=== PATIENT | male | born 1990 | race Two or more races ===

== ENCOUNTER 2025-06-02 13:35 | Inpatient (IN) | payer MEDICAID, OTHER ==
[~2025-06-02] VITALS: Ht 167.6 cm; Wt 92.4 kg
--- NOTE | 2025-06-02 14:16 | ED.PDOC ---
History of Present Illness HPI Comments 35y M who presents to the ED for chief complaint of multiple complaints. Pt states he started to have L arm tingling and pain starting 3x days prior. Pt states it went away but while at grocery store this AM, he started to have chest pain, shortness of breath, with associated L leg pain and tingling and came to the ED for further evaluation. Pt in the ED, is alert and oriented x 4 and no noted changes in vision, gait or speech are noted. Pt has noted history of HTN and states has been taking his medications. Pt denies any other symptoms at this time. Pt has noted BP of 180/115 and heart rate 106 in the ED with otherwise stable vitals. Chief Complaint: Upper Extremity Time Seen by MD: 14:08 Reviewed Notes: Medications, Allergies Allergies: Coded Allergies: NO KNOWN ALLERGIES (Unverified , 06/02/25) Information Source: Patient, Spouse Mode of Arrival: Ambulatory Severity: Moderate Timing: Days Duration: Since onset Prehospital treatment: None Past Medical History PAST MEDICAL HISTORY: HTN Surgical History: Denies all surgeries Family History Family History: Family hx of DM Social History Smoker: Non-Smoker Alcohol: Occasionally Drugs: Denies Drug Use Lives In: Home Constitutional: denies: chills, diaphoresis, fatigue, fever, malaise, sweats, weakness, others EENTM: denies: blurred vision, double vision, ear bleeding, ear discharge, ear drainage, ear pain, ear ringing, eye pain, eye redness, hearing loss, mouth pain, mouth swelling, nasal discharge, nose bleeding, nose congestion, nose pain, photophobia, tearing, throat pain, throat swelling, voice changes, others Respiratory: reports: shortness of breath; denies: cough, hemoptysis, orthopnea, SOB at rest, SOB with excertion, stridor, wheezing, others Cardiovascular: reports: chest pain; denies: dizzy spells, diaphoresis, Dyspnea on exertion, edema, irregular heart beat, left arm pain, lightheadedness, palpitations, PND, syncope, others Gastrointestinal: denies: abdomen distended, abdominal pain, blood streaked bowels, constipated, diarrhea, dysphagia, difficulty swallowing, hematemesis, melena, nausea, poor appetite, poor fluid intake, rectal bleeding, rectal pain, vomiting, others Genitourinary: denies: burning, dysuria, flank pain, frequency, hematuria, incontinence, penile discharge, penile sore, pain, testicle pain, testicle swelling, urgency, others Neurological: reports: tingling (L upper and lower extremity); denies: dizziness, fainting, headache, left sided numbness, left sided weakness, numbness, paresthesia, pre-existing deficit, right sided numbness, right sided weakness, seizure, speech problems, tremors, weakness, others Musculoskeletal: denies: back pain, gout, joint pain, joint swelling, muscle pain, muscle stiffness, neck pain, others Integumetry: denies: bruises, change in color, change in hair/nails, dryness, l aceration, lesions, lumps, rash, wounds, others Allergic/Immunocompromised: denies: Difficulty Healing, Frequent Infections, Hives, Itching, others Hematologic/Lymphatic: denies: anemia, blood clots, easy bleeding, easy bruising, swollen glands, others Endocrine: denies: excessive hunger, excessive sweating, excessive thirst, excessive urination, flushing, intolerance to cold, intolerance to heat, unexplained weight gain, unexplained weight loss, others Psychiatric: denies: anxiety, bipolar disorder, depression, hopeless, panic disorder, schizophrenia, sleepless, suicidal, others All Other Systems: Reviewed and Negative Physical Exam General Appearance: Moderate Distress HEENT: Normal ENT Inspection, Pharynx Normal, TMs Normal Neck: Full Range of Motion, Non-Tender, Normal, Normal Inspection Respiratory: Chest Non-Tender, Lungs Clear, No Accessory Muscle Use, No Respiratory Distress, Normal Breath Sounds Cardiovascular: No Edema, No JVD, No Murmur, No Gallop, Normal Peripheral Pulses, Regular Rate/Rhythm Breast Exam: Deferred Gastrointestinal: No Organomegaly, Non Tender, No Pulsatile Mass, Normal Bowel Sounds, Soft Genitalia: Deferred Pelvic: Deferred Rectal: Deferred Extremities: No calf tenderness, Normal capillary refill, No pedal edema Musculoskeletal : Apperance: Normal Neurologic: Alert, gun stocker II-XII nml as Tested, Motor Weakness, Normal Affect, Normal Mood, No Sensory Deficits Cerebellar Function: Normal Reflexes: Normal Skin: Dry, Pallor, Warm Lymphatic: No Adenopathy Was a procedure done? Was a procedure done?: No Differential Dx Considerations may include: HTN urgency, med noncompliance, cervical radiculopathy, muscle spasm X-Ray, Labs, Meds, VS Vital Signs Date Time Temp Pulse Resp B/P (MAP) Pulse Ox O2 Delivery O2 Flow Rate FiO2 06/02/25 16:57 86 16 97 Room Air 06/02/25 16:57 97.8 86 0 167/108 (127) 86 97.8 06/02/25 16:32 167/108 06/02/25 14:26 75 06/02/25 13:37 98.0 106 16 180/115 99 98.0 Lab Test 06/02/25 14:54 06/02/25 14:12 Range/Units Troponin I High Sensitivity 3 L < 3 L </=54 ng/L White Blood Count 7.4 4.4-10.8 10^3/uL Red Blood Count 5.10 4.5-5.90 10^6/uL Hemoglobin 15.2 13.5-17.5 g/dL Hematocrit 43.8 41.0-53.0 % Mean Corpuscular Volume 86.0 80.0-100.0 fL Mean Corpuscular Hemoglobin 29.8 28.0-32.0 pg Mean Corpuscular Hemoglobin Concent 34.7 32.0-36.0 g/dL Red Cell Distribution Width 14.0 11.8-14.3 % Platelet Count 270 140-450 10^3/uL Mean Platelet Volume 7.2 6.9-10.8 fL Neutrophils (%) (Auto) 48.4 37.0-80.0 % Lymphocytes (%) (Auto) 38.7 10.0-50.0 % Monocytes (%) (Auto) 5.9 0.0-12.0 % Eosinophils (%) (Auto) 6.2 0.0-7.0 % Basophils (%) (Auto) 0.8 0.0-2.0 % Neutrophils # (Auto) 3.6 1.6-8.6 10 ^3/uL Lymphocytes # (Auto) 2.9 0.4-5.4 10 ^3/uL Monocytes # (Auto) 0.4 0-1.3 10 ^3/uL Eosinophils # (Auto) 0.5 0-0.8 10 ^3/uL Basophils # (Auto) 0.1 0-0.2 10 ^3/uL Nucleated Red Blood Cells 0.0 % Sodium Level 139 136-145 mmol/L Potassium Level 3.3 L 3.5-5.1 mmol/L Chloride Level 104 98-107 mmol/L Carbon Dioxide Level 24 20-31 mmol/L Anion Gap 11 5-15 Blood Urea Nitrogen 32 H 9-23 mg/dL Creatinine 2.49 H 0.700-1.30 mg/dL Glomerular Filtration Rate Calc 34 >90 mL/min BUN/Creatinine Ratio 12.9 10.0-20.0 Serum Glucose 187 H 74-106 mg/dL Calcium Level 9.1 8.7-10.4 mg/dL Current Medications Medications (Trade) Dose Ordered Sig/Vale Route Start Time Stop Time Status Last Admin Clonidine HCl (Catapres Tablet) 0.2 mg ONCE ONCE PO 06/02/25 14:30 06/02/25 14:31 DC 06/02/25 16:32 PROCEDURE(s): HWOCT - HEAD WITHOUT CONTRAST IMPRESSION: 1. No acute intracranial process. 2. Mild left maxillary sinus disease. The patient's CBC is within normal limits The chemistry panel shows a BUN of 32 and a creatinine of 2.49 The glucose is 187 The patient was given clonidine 0.2 mg by mouth The troponin level x2 is negative Images Reviewed?: Images reviewed and evaluated by me Time of 1ST Reevaluation: 14:40 Reevaluation 1ST: Unchanged Patient Education/Counseling: Diagnosis, Treatment, Prognosis Family Education/Counseling: Diagnosis, Treatment, Prognosis SEPSIS Sepsis Screen Date sepsis recognized/suspect: Jun 02, 2025 Time Sepsis recognized/suspect: 1337 Recent Procedure: No On Antibiotic Therapy: No Respiratory Rate >20: No Heart Rate >90: Yes Temp<36 C (96.8 F) or >38.3 C: No SBP <90 or MAP <65 mmHG: No New Acute Mental Status Change: No Is the patient on CPAP, BIPAP,: No Physician Orders Urinalysis (06/02/25 14:05) Electrocardigram (06/02/25 14:05) Drug Screen (06/02/25 14:05) Head Without Contrast (06/02/25 14:05) Electrocardigram (06/02/25 15:05) Electrocardigram (06/02/25 17:05) Vital Signs Date Time Temp Pulse Resp B/P (MAP) Pulse Ox O2 Delivery O2 Flow Rate FiO2 06/02/25 16:57 86 16 97 Room Air 06/02/25 16:57 97.8 86 0 167/108 (127) 86 97.8 06/02/25 16:32 167/108 06/02/25 14:26 75 06/02/25 13:37 98.0 106 16 180/115 99 98.0 Laboratory Tests Test 06/02/25 14:12 White Blood Count 7.4 10^3/uL (4.4-10.8) Medications Medications Dose Ordered Sig/Vale Route Start Time Stop Time Status Last Admin Dose Admin Clonidine HCl 0.2 mg ONCE ONCE PO 06/02/25 14:30 06/02/25 14:31 DC 06/02/25 16:32 Departure 1 Departure Time of Disposition: 17:09 Impression: Primary Impression: Acute myocardial ischemia Disposition: ADMITTED INPATIENT Admit to: Tele Condition: Fair Critical Care Note Critical Care Time?: No Stability Stability form required: Yes Unstable for transfer: Telemetry monitoring (Telemetry monitoring required), ED Physician Assesment (Clinical assesment) Heart Score Heart Score: Heart Score Response (Comments) Value History Moderate Suspicious 1 EKG Repolarization Disturb 1 Age <45 0 Risk Factors 1 or 2 risk factors 1 Troponin Normal limit 0 Total 3 I personally scribed for ZAIN VALLADARES MD (NONISJOSÉ MIGUEL) on 06/02/25 at 14:16. El ectronically submitted by Sondra Patterson ([facility] [place]). I personally scribed for ZAIN VALLADARES MD (FELIBERTOPASJOSÉ MIGUEL) on 06/02/25 at 15:03. Electronically submitted by Sondra Patterson ([facility] [place]). ZAIN VALLADARES MD Jun 02, 2025 14:16
[2025-06-02 14:24] LABS: Hematocrit 43.8 % (41.0-53.0); Hemoglobin 15.2 g/dL (13.5-17.5); Mean Corpuscular Hemoglobin 29.8 pg (28.0-32.0); Mean Corpuscular Volume 86.0 fL (80.0-100.0); Nucleated Red Blood Cells % 0.0 %
[2025-06-02 14:26] LABS: Chloride 104 mmol/L (98-107); Sodium 139 mmol/L (136-145)
[2025-06-02 14:27] LABS: Anion Gap 11 (5-15); Carbon Dioxide 24 mmol/L (20-31)
[2025-06-02 14:28] LABS: Calcium 9.1 mg/dL (8.7-10.4); Potassium 3.3 mmol/L (3.5-5.1)
[2025-06-02 14:32] LABS: BUN/Creatinine Ratio 12.9 (10.0-20.0)
[2025-06-02 14:33] LABS: Blood Urea Nitrogen 32 mg/dL (9-23); Glucose 187 mg/dL (74-106)
--- NOTE | 2025-06-02 14:56 | DVH ---
EXAM: CT HEAD WITHOUT CONTRAST HISTORY: GENERALIZED NUMBNESS AND WEAKNESS TO THE LEFT EXTREMITIES COMPARISON: None TECHNIQUE: Noncontrast axial CT images of the head were performed. Sagittal and coronal reformatted i mages were obtained. This CT exam was performed using 1 or more of the following dose reduction techn iques: Automated exposure control, adjustment of the mA and/or kv according to patient size, or the u se of iterative reconstruction techniques. Radiation Dose: CTDI volume is 58.74 mGy. Dose-length product is 1273.2 mGy*cm FINDINGS: No intracranial hemorrhage, mass, midline shift, hydrocephalus, or evidence of acute large vessel inf arct. There is a mucous retention cyst in the left maxillary sinus. The bilateral mastoid air cells a nd middle ear spaces are clear. No cranial fracture or scalp edema. IMPRESSION: 1. No acute intracranial process. 2. Mild left maxillary sinus disease.
[2025-06-02] MEDS ORDERED: ACETAMINOPHEN 325 MG TAB PO PRN (21:30)
--- NOTE | 2025-06-02 21:32 | DVHHPRES ---
History of Present Illness Resident Creating Document: NATHAN BAUER History of Present Illness Mr. Davis is a 35 year old male with prior medical history of hypertension, hyperlipidemia, and CKD, who presents today with chief complaint of multiple complaints. The patient states he was at the grocery store today when he had onset generalized tingling, blurry vision, nausea, palpitations, and tinnitus. He denies vomiting, chest pain, headaches, loss of consciousness, and other symptoms. The patient states he is noncompliant with his blood pressure medications. Due to persistent symptoms, he sought medical care at the emergency department. On evaluation in the ED, blood pressure was 180/115 mmHg. 12 lead EKG shows sinus rhythm. Initial labs show CBC within normal range, hypokalemia, creatinine 2.49, BUN 32, and Troponins were negative. head CT shows no acute intracranial process. Chest x-ray shows no acute cardiopulmonary disease. The patient was given 1 dose of oral clonidine. who was admitted for further workup and monitoring. Personal history: Hypertension, hyperlipidemia, CKD Surgical history: Jaw surgery, ganglion cyst removal Allergies: Denies Social history: refers daily marijuana use for the last month with habitual use before, denies alcohol and tobacco use. He lives with his and children and states he feels safe. Review of Systems Review of Systems Constitutional: Denies weight loss, fever and chills. HEENT: Refers blurry vision, Denies changes in hearing. Respiratory: Denies shortness of breath and cough Cardiovascular: Denies chest discomfort or palpitations GI: Denies abdominal distention, abdominal pain, diarrhea : Denies dysuria and urinary frequency. Musculoskeletal: Denies symptoms Skin: Denies rash and pruritus. Neurological: Refers minor headache denies dizziness vision or hearing problems Allergies: Coded Allergies: NO KNOWN ALLERGIES (Unverified , 06/02/25) Medications Current Medications Medications Dose Ordered Sig/Vale Route Start Time Stop Time Status Last Admin Dose Admin Enoxaparin Sodium 40 mg DAILY SC 06/03/25 10:00 UNV Acetaminophen 325 mg Q4HP PRN PO 06/02/25 21:30 UNV Carvedilol 12.5 mg Q12HR PO 06/02/25 22:00 UNV Losartan Potassium 100 mg DAILY PO 06/03/25 10:00 UNV Hydrochlorothiazide 25 mg DAILY PO 06/03/25 10:00 UNV Exam Vital Signs Vital Signs Date Time Temp Pulse Resp B/P (MAP) Pulse Ox O2 Delivery O2 Flow Rate FiO2 06/02/25 16:57 86 16 97 Room Air 06/02/25 16:57 97.8 167/108 (127) 97.8 Exam General: The patient alert and oriented in person place and time. Patient following commands HEENT: Normocephalic, atraumatic, normal reactive pupils, EOM intact, pink conjunctiva, pink moist mucous membrane Respiratory/pulmonary: Bilateral chest expansion, no pain on palpation of chest wall, clear lungs bilaterally, vesicular murmurs present in almost all lung trujillo, no associated crackles or wheezes. Cardiovascular: Normal RRR, normal S1 and S2, no murmurs Abdomen: Obese, Abdomen nondistended, normal bowel sounds, soft, there is no pain to palpation in any of the abdominal quadrants, no palpable masses. Extremities: No deformities, there is no peripheral edema present at the lower extremities, normal pulses Skin: No rashes or pruritus, there is no sacral edema present at this time. Neurological: Intact cranial nerves with no focal neurologic deficits Labs/Xrays Labs Test 06/02/25 14:54 06/02/25 14:12 Range/Units Troponin I High Sensitivity 3 L </=54 ng/L White Blood Count 7.4 4.4-10.8 10^3/uL Red Blood Count 5.10 4.5-5.90 10^6/uL Hemoglobin 15.2 13.5-17.5 g/dL Hematocrit 43.8 41.0-53.0 % Mean Corpuscular Volume 86.0 80.0-100.0 fL Mean Corpuscular Hemoglobin 29.8 28.0-32.0 pg Mean Corpuscular Hemoglobin Concent 34.7 32.0-36.0 g/dL Red Cell Distribution Width 14.0 11.8-14.3 % Platelet Count 270 140-450 10^3/uL Mean Platelet Volume 7.2 6.9-10.8 fL Neutrophils (%) (Auto) 48.4 37.0-80.0 % Lymphocytes (%) (Auto) 38.7 10.0-50.0 % Monocytes (%) (Auto) 5.9 0.0-12.0 % Eosinophils (%) (Auto) 6.2 0.0-7.0 % Basophils (%) (Auto) 0.8 0.0-2.0 % Neutrophils # (Auto) 3.6 1.6-8.6 10 ^3/uL Lymphocytes # (Auto) 2.9 0.4-5.4 10 ^3/uL Monocytes # (Auto) 0.4 0-1.3 10 ^3/uL Eosinophils # (Auto) 0.5 0-0.8 10 ^3/uL Basophils # (Auto) 0.1 0-0.2 10 ^3/uL Nucleated Red Blood Cells 0.0 % Sodium Level 139 136-145 mmol/L Potassium Level 3.3 L 3.5-5.1 mmol/L Chloride Level 104 98-107 mmol/L Carbon Dioxide Level 24 20-31 mmol/L Anion Gap 11 5-15 Blood Urea Nitrogen 32 H 9-23 mg/dL Creatinine 2.49 H 0.700-1.30 mg/dL Glomerular Filtration Rate Calc 34 >90 mL/min BUN/Creatinine Ratio 12.9 10.0-20.0 Serum Glucose 187 H 74-106 mg/dL Calcium Level 9.1 8.7-10.4 mg/dL SEPSIS Sepsis Screen Date sepsis recognized/suspect: Jun 02, 2025 Time Sepsis recognized/suspect: 1336 Recent Procedure: No On Antibiotic Therapy: No Respiratory Rate >20: No Heart Rate >90: Yes Temp<36 C (96.8 F) or >38.3 C: No SBP <90 or MAP <65 mmHG: No New Acute Mental Status Change: No Is the patient on CPAP, BIPAP,: No Physician Orders Urinalysis (06/02/25 14:05) Electrocardigram (06/02/25 14:05) Drug Screen (06/02/25 14:05) Head Without Contrast (06/02/25 14:05) Electrocardigram (06/02/25 15:05) Electrocardigram (06/02/25 17:05) Magnesium (06/02/25 20:55) Hemoglobin A1c (06/02/25 20:55) B-Type Natriuretic Peptide (06/02/25 20:55) Chest Xray 1 View (06/02/25 20:55) Phosphorus (06/02/25 20:55) Thyroid Stimulating Hormone (06/02/25 20:55) Vitamin D, 25-Hydroxy (06/02/25 20:55) Vitamin B12 (06/02/25 20:55) Complete Blood Count (06/03/25 04:00) Hepatic Panel (06/02/25 20:55) Basic Metabolic Panel (06/03/25 04:00) Admit (06/02/25 21:23) Allergies (06/02/25:23) Code Status (06/02/25:23) Enoxaparin Sodium (Lovenox) (06/03/25 10:00) Cardiac Diet-2gna,Lofat,Lochol (06/03/25 Breakfast) Echo 2d Mode Cardiac Dop (06/02/25 21:23) Condition: Stable (06/02/25:23) Stat Ekg For Chest Pain (06/02/25:) Notify Of Changes From Base (06/02/25 21:23) 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 (06/02/25 21:23) Emergency Dysrhythmia Protocol (06/02/25:23) Rhythm Strips Once Every Shift (06/02/25 21:23) Acetaminophen Tablet (Tylenol Tablet) (06/02/25 21:30) Carvedilol Tablet (Coreg Tablet) (06/02/25 22:00) Losartan Tablet (Cozaar Tablet) (06/03/25 10:00) Losartan Tablet (Cozaar Tablet) (06/02/25 21:30) Hydrochlorothiazide Tablet (Hydrochlorot (06/03/25 10:00) Hydrochlorothiazide Tablet (Hydrochlorot (06/02/25 21:30) Vital Signs Date Time Temp Pulse Resp B/P (MAP) Pulse Ox O2 Delivery O2 Flow Rate FiO2 06/02/25 16:57 86 16 97 Room Air 06/02/25 16:57 97.8 86 0 167/108 (127) 86 97.8 06/02/25 16:32 167/108 06/02/25 14:26 75 06/02/25 13:37 98.0 106 16 180/115 99 98.0 Laboratory Tests Test 06/02/25 14:12 White Blood Count 7.4 10^3/uL (4.4-10.8) Medications Medications Dose Ordered Sig/Vale Route Start Time Stop Time Status Last Admin Dose Admin Clonidine HCl 0.2 mg ONCE ONCE PO 06/02/25 14:30 06/02/25 14:31 DC 06/02/25 16:32 0.2 MG Assessment/Plan Assessment/Plan Assessment and Plan: Hypertensive crisis - Clonidine 0.2 mg p.o. once - Continue losartan 100 mg p.o. daily - Continue hydrochlorothiazide 25 mg p.o. daily - Continue Coreg 12.5 mg p.o. q.12 hours - Monitor BP - Evaluate secondary causes of hypertension in young male (Hyperaldosteronism, hyperthyroidism, etc...) Renal Artery Stenosis ruled out - Renal artery duplex: No findings to suggest renal artery stenosis Possible GEREMIAS on CKD likely due to VMN/hemodynamically mediated - Monitor renal function - Avoid nephrotoxic drugs Hypokalemia, 3.3 - Potassium 20 mEq p.o., once Vitamin D Deficiency - Vitamin-D 56874 units Q 70 p.o. Hyperlipidemia - Pending lipid panel Marijuana use - I have counseled the patient on the importance of complete marijuana cessation for over 15 minutes. Medication noncompliance - I have counseled the patient on the importance of maintaining adherence to his medications Obesity, BMI 32.9 kg/m2 - I have counseled the patient on healthy lifestyle modifications Diet: Cardiac DVT prophylaxis: Enoxaparin 40 mg SC daily GI prophylaxis: Not indicated Case discussed with Dr. Herndon Goals of care discussed with the patient and his for 28 minutes. Full code. Plan discussed with: Patient, Spouse, Other (Nurses) My Orders Orders - NATHAN BAUER RESIDENT Procedure Category Date Status Time Magnesium LAB 06/02/25 In Process 20:55 Hemoglobin A1c LAB 06/02/25 In Process 20:55 B-Type Natriuretic LAB 06/02/25 In Process Peptide 20:55 Chest Xray 1 View XY 06/02/25 Taken 20:55 Phosphorus LAB 06/02/25 In Process 20:55 Thyroid Stimulating LAB 06/02/25 In Process Hormone 20:55 Vitamin D, 25-Hydroxy LAB 06/02/25 In Process 20:55 Vitamin B12 LAB 06/02/25 In Process 20:55 Complete Blood Count LAB 06/03/25 Verified 04:00 Hepatic Panel LAB 06/02/25 In Process 20:55 Basic Metabolic Panel LAB 06/03/25 Verified 04:00 Admit ADMIT 06/02/25 Transmitted 21:23 Allergies TYE 06/02/25 In Process 21:23 Code Status CODE 06/02/25 Transmitted 21:23 Enoxaparin Sodium PHA 06/03/25 Logged (Lovenox) 10:00 Cardiac DIET 06/03/25 Transmitted Diet-2gna,Lofat,Lochol Breakfast Echo 2d Mode Cardiac US 06/02/25 Logged DOP 21:23 Condition: Stable [facility] 06/02/25 In Process 21:23 Stat Ekg For Chest [facility] 06/02/25 In Process Pain 21:23 Notify Md Of Changes [facility] 06/02/25 In Process From Base 21:23 Sewing 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 Paper 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 For [facility] 06/02/25 In Process 24 Hours 21:23 Emergency Dysrhythmia [facility] 06/02/25 In Process Protocol 21:23 Rhythm Strips Once [facility] 06/02/25 In Process Every Shift 21:23 Acetaminophen Tablet [facility] 06/02/25 Logged (Tylenol Tablet) 21:30 Carvedilol Tablet [facility] 06/02/25 Logged (Coreg Tablet) 22:00 Losartan Tablet [facility] 06/03/25 Logged (Cozaar Tablet) 10:00 Losartan Tablet [facility] 06/02/25 Logged (Cozaar Tablet) 21:30 Hydrochlorothiazide [facility] 06/03/25 Logged Tablet (Hydrochlorot 10:00 Hydrochlorothiazide PHA 06/02/25 Logged Tablet (Hydrochlorot 21:30 Date of Service: Jun 02, 2025 Billing Provider: ESTRELLA ESPINOZA MD Common Visit Codes: [id number] INP/OBS CARE (HIGH) Secondary Visit Codes: [id number] CARE PLAN 30 MINUTES NATHAN BAUER RESIDENT Jun 02, 2025 21:32 ALPESH BUITRAGO RESIDENT Jun 03, 2025 02:38
--- NOTE | 2025-06-02 21:38 | DVH ---
CHEST RADIOGRAPH Indication: Chest pain Technique: Single frontal view of the chest was obtained Comparison: None FINDINGS: Lines and Tubes: None Lungs: No focal consolidation. Pleura: No effusion. No pneumothorax. Cardiomediastinal contours: Unremarkable Bones: No acute osseous abnormality. IMPRESSION: 1. No acute cardiopulmonary disease.
[2025-06-02 21:42] LABS: Alanine Aminotransferase 22.0 U/L (7-40); Albumin 4.5 g/dL (3.2-4.8); Alkaline Phosphatase 80.0 U/L (46-116); Bilirubin, Direct 0.2 mg/dL (<0.3); Magnesium 2.0 mg/dL (1.6-2.6); Total Protein 8.1 g/dL (5.7-8.2)
[2025-06-02 21:43] LABS: Bilirubin, Total 0.8 mg/dL (0.2-1.0)
--- NOTE | 2025-06-02 23:32 | DVH ---
INDICATION: Hypotension TECHNIQUE: Multiple real-time sonographic images of the kidneys and bladder were obtained. Duplex Doppler evaluation including color Doppler and spectral/pulsed waveform analysis of the bilate ral renal arteries was performed. COMPARISON: None FINDINGS: The right kidney measures 12.0 cm in length. The right renal echogenicity, contour and cortical thick ness are within normal limits. No hydronephrosis or large masses/calculi are seen. Polycystic in appe arance. The left kidney measures 12.0 cm in length. The left renal echogenicity, contour, and cortical thickn ess are within normal limits. No hydronephrosis or large masses/calculi are seen. Polycystic in appea mario. Aorta peak systolic velocity, 122 cm/s Right renal artery peak systolic velocity, 64 cm/s (< 180 cm/s = normal). Left renal artery peak systolic velocity 121 cm/s (< 180 cm/s = normal). Right RAR : 0.8 (< 3.5, normal) Left RAR 1.0 (< 3.5, normal) Right RI: 0.72 (< 0.75, normal) Left RI: 0.64 (< 0.75, normal) IMPRESSION: No findings to suggest renal artery stenosis. *[employer] Techniques in Noninvasive Vascular Diagnosis 2001
[2025-06-03 01:00] VITALS: BP 155/85; PULSE 67; RESP 20; TEMP 97.9; O2SAT 99
[2025-06-03] MEDS: CARVEDILOL 12.5 MG TAB PO SCH (01:02)
[2025-06-03 01:07] VITALS: BP 155/85; PULSE 67; RESP 20; TEMP 97.9; O2SAT 99
[2025-06-03 04:39] LABS: Hematocrit 40.1 % (41.0-53.0); Hemoglobin 14.0 g/dL (13.5-17.5); Mean Corpuscular Hemoglobin 29.8 pg (28.0-32.0); Mean Corpuscular Volume 85.6 fL (80.0-100.0); Nucleated Red Blood Cells % 0.1 %
[2025-06-03 04:46] LABS: Anion Gap 13 (5-15); Carbon Dioxide 23 mmol/L (20-31); Chloride 103 mmol/L (98-107); Potassium 3.1 mmol/L (3.5-5.1); Sodium 139 mmol/L (136-145)
[2025-06-03 04:47] LABS: Calcium 9.0 mg/dL (8.7-10.4)
[2025-06-03 04:52] LABS: BUN/Creatinine Ratio 10.3 (10.0-20.0); Glucose 92 mg/dL (74-106)
[2025-06-03 04:53] LABS: Blood Urea Nitrogen 24 mg/dL (9-23); Triglycerides 194 mg/dL (< 150)
[2025-06-03 04:54] LABS: Cholesterol 219 mg/dL (< 200); HDL Cholesterol 32 mg/dL (40-59)
[2025-06-03 05:00] VITALS: BP 126/72; PULSE 56; RESP 18; TEMP 98.1; O2SAT 98
[2025-06-03] MEDS: POTASSIUM CHL 20 Meq TABLET PO ONE (05:42)
[2025-06-03] MEDS: SODIUM CHLORIDE 0.9% 500 ML IV ONE (06:15)
[2025-06-03] MEDS ORDERED: POTASSIUM EFFERVESENT TAB 25 MEQ PO ONE (06:30)
[2025-06-03] MEDS: LOSARTAN POTASSIUM 50 MG TAB PO ONE (07:57)
[2025-06-03] MEDS: hydroCHLOROthiazide 25 MG TAB PO ONE (07:57)
[2025-06-03] MEDS: ERGOCALCIFEROL 50,000 UNIT(1.25MG) CAP PO SCH (08:20)
[2025-06-03] MEDS: hydroCHLOROthiazide 25 MG TAB PO SCH (08:21)
[2025-06-03] MEDS: LOSARTAN POTASSIUM 50 MG TAB PO SCH (08:26)
[2025-06-03] MEDS: ENOXAPARIN SOD 40 MG/0.4 ML SYRINGE SC SCH (08:27)
[2025-06-03] MEDS ORDERED: CARV12.544 PO (08:35)
[2025-06-03] MEDS ORDERED: LOSA100T25 PO (08:35)
--- NOTE | 2025-06-03 08:38 | DVH ---
CLINICAL HISTORY: Rule out carotid stenosis. TECHNIQUE: Duplex carotid Doppler ultrasound was performed. Grayscale, color-flow, and spectral wavef orm analysis was performed. COMPARISON: None FINDINGS: There is no significant plaque seen on zhao scale imaging in the carotid bifurcations and proximal IC As bilaterally. There is no significant elevation of the peak systolic velocity. There is no signi ficant spectral broadening. Color doppler examination demonstrates no evidence for significant turbu lent flow. Findings correspond to the less than 50% stenosis category. Antegrade flow is noted in b oth vertebral arteries. EXAMINATION DATA: RIGHT PSV (cm/s) EDV (cm/s) ICA 85 32 CCA 95 ECA 84 ICA/CCA Ratio: 0.9 Vertebral Flow: antegrade LEFT PSV (cm/s) EDV (cm/s) ICA 69 29 CCA 64 ECA 93 ICA/CCA Ratio: 1.1 Vertebral Flow: antegrade IMPRESSION: Normal examination. No evidence of significant carotid stenosis.
[2025-06-03 09:06] VITALS: BP 140/90; PULSE 71; RESP 16; TEMP 97.6; O2SAT 98
[2025-06-03] MEDS ORDERED: POTASSIUM CHL 20 Meq TABLET PO SCH (10:00)
[2025-06-03 10:33] LABS: Urine Protein, UAD Negative (Negative)
[2025-06-03 10:52] LABS: Amphetamine Screen, Urine Neg (NEGATIVE); Barbiturate Scree,Urine Neg (NEGATIVE); Benzodiazephine Screen, Urine Neg (NEGATIVE); Cannabinoid Screen, Urine Pos (NEGATIVE); Cocaine Screen, Urine Neg (NEGATIVE); Opiate Scree,Urine Neg (NEGATIVE); Phencyclidine Screen, Urine Neg (NEGATIVE)
--- NOTE | 2025-06-03 12:52 | DVH ---
Exam: CT CT AB PEL WO CON-NO ORAL OR IV History: Abdominal pain, r/o adrenal mass. Comparison Study: Renal artery ultrasound performed on 06/02/2025. Technique: Multidetector spiral CT of the abdomen and pelvis was performed from lung bases to pubic s ymphysis. Imaging was performed without intravenous contrast. Coronal and sagittal multiplanar reform ats were obtained from the axial data set by the technologist. Radiation Dose : 1. Abdomen/Pelvis: CTDIvol 17.65 mGy, DLP 1186.2 mGy*cm. Findings: Evaluation of vasculature and solid organs is limited due to lack of intravenous contrast use. Lung Bases: Lung bases are clear. Visualized portions of the heart and pericardium are unremarkable. Liver: The liver is normal in size. No focal lesions. Gallbladder and Biliary Tree: The gallbladder is unremarkable. No intrahepatic or extrahepatic biliar y ductal dilatation. Spleen: Unremarkable Pancreas: The pancreas is grossly unremarkable. Adrenal Glands: Unremarkable Kidneys: There are innumerable bilateral cysts replacing the bilateral renal parenchyma. No hydroneph rosis. No renal calculi. GI tract: The stomach is grossly normal in appearance. No evidence of small bowel wall thickening or abnormal dilatation to suggest bowel obstruction. The colon is unremarkable. The appendix is visualiz ed and is normal. Peritoneum/mesentery/retroperitoneum. No evidence of free intraperitoneal air. No ascites. No evidenc e of suspicious lymphadenopathy. Abdominal Wall: Unremarkable. Vasculature: The visualized abdominal aorta is normal in size and caliber. Evaluation of abdominal a nd pelvic vessels is limited due to lack of intravenous contrast. Urinary Bladder: Grossly unremarkable for degree of distention. Pelvic Organs: Unremarkable Musculoskeletal: No aggressive focal bony lesions, acute fractures or dislocation. Soft tissues: Fat containing umbilical hernia. Subcutaneous emphysema in the left ventral abdominal w all to be correlated with injection history. IMPRESSION: 1. No acute abdominopelvic abnormalities. No adrenal mass. 2. Polycystic kidney disease.
[2025-06-03 13:00] VITALS: BP 137/80; PULSE 60; RESP 18; TEMP 98; O2SAT 99
--- NOTE | 2025-06-03 13:39 | DVHPNRES ---
Progress Note Date Seen: Jun 03, 2025 Resident Creating Document: LEXY TIM Medical Necessity Reason Pt with a Central, PICC or Fol: No Subjective Review of Systems Patient is a 35-year-old male with past medical history of hypertension, hyperlipidemia, and CKD, presented to [facility] ED with complaint of shortness of breaths, palpitation. The patient reports that yesterday around 1 PM, while at the grocery store, he experienced blurry vision, nausea, palpitations, and dizziness. He denies vomiting, chest pain, headache, loss of consciousness, or other associated symptoms. He recently lost approximately 60 pounds over the past year, going from 270 to 210 pounds, which he attributes to healthy lifestyle changes. The patient admits to being noncompliant with his blood pressure medications and reports not taking them for the past 3 days. On evaluation in the ED, blood pressure was 180/115 mmHg. 12 lead EKG shows sinus rhythm. Initial labs show CBC within normal range, hypokalemia, creatinine 2.49, BUN 32, and Troponins were negative. Head CT shows no acute intracranial process. Chest x-ray shows no acute cardiopulmonary disease. Carotid Doppler Study shows no evidence of significant carotid stenosis. Head CT shows no acute intracranial process. Past medical history: Hypertension, hyperlipidemia, CKD Past surgical history: Jaw surgery, ganglion cyst removal Social & Personal history: refers daily marijuana use for the last month with habitual use before for 2-3 years, denies alcohol and tobacco use. He lives with his and children and states he feels safe. Allergies: Denies Patient seen and examined at bedside. Patient is alert and oriented to time, place person and responding to all questions. Eyes: No Pain, Vision change, No Conjunctivae inflammation, No Eyelid inflammation, No Other, No Redness ENT: No Ear pain, No Ear discharge, No Nose pain, No Nose discharge, No Nose congestion, No Mouth pain, No Mouth swelling, No Throat pain, No Throat swelling, No Other Cardiovascular: No Chest Pain, Palpitations, No Orthopnea, No Paroxysmal No Dyspnea, No Edema, No Lt Headedness, No Other Respiratory: No Cough, No Dry, Shortness of breath, No SOB with exertion, No Wheezing, No Hemoptysis, No Pleuritic Pain, No Sputum, No Other Gastrointestinal: Nausea, No Vomiting, No Abdominal Pain, No Diarrhea, No Constipation, No Melena, No Hematochezia, No Other Genitourinary: No Dysuria, No Frequency, No Incontinence, No Hematuria, No Retention, No Other Musculoskeletal: No other, No neck pain, No shoulder pain, No arm pain, No back pain, No hand pain, No leg pain, No foot pain Skin: No Rash, No Lesions, No Jaundice, No Bruising, No Other Objective vital signs Vital Sign Date Time Temp Pulse Resp B/P (MAP) Pulse Ox O2 Delivery O2 Flow Rate FiO2 06/03/25 09:06 97.6 71 16 140/90 (107) 98 97.6 06/03/25 01:07 Room Air* 0 21 medications Current Medications Medications Dose Ordered Sig/Vale Route Start Time Stop Time Status Last Admin Dose Admin Enoxaparin Sodium 40 mg DAILY SC 06/03/25 10:00 06/03/25 08:27 40 MG Acetaminophen 325 mg Q4HP PRN PO 06/02/25 21:30 Carvedilol 12.5 mg Q12HR PO 06/02/25 22:00 06/03/25 08:25 12.5 MG Losartan Potassium 100 mg DAILY PO 06/03/25 10:00 06/03/25 08:26 100 MG Hydrochlorothiazide 25 mg DAILY PO 06/03/25 10:00 06/03/25 08:21 25 MG Ergocalciferol 50,000 unit Q7D PO 06/03/25 10:00 06/03/25 08:20 50,000 UNIT Examination General: The patient alert and oriented in person place and time. Patient following commands HEENT: Normocephalic, atraumatic, normal reactive pupils, EOM intact, pink conjunctiva, pink moist mucous membrane Respiratory/pulmonary: Bilateral chest expansion, no pain on palpation of chest wall, clear lungs bilaterally, vesicular murmurs present in almost all lung trujillo, no associated crackles or wheezes. Cardiovascular: Normal RRR, normal S1 and S2, no murmurs Abdomen: Obese, Abdomen nondistended, normal bowel sounds, soft, there is no pain to palpation in any of the abdominal quadrants, no palpable masses. Extremities: No deformities, there is no peripheral edema present at the lower extremities, normal pulses Skin: No rashes or pruritus, there is no sacral edema present at this time. Neurological: Intact cranial nerves with no focal neurologic deficits laboratory and microbiology Laboratory Tests 06/03/25 07:53 06/03/25 03:28 Test 06/03/25 03:28 Range/Units Serum Glucose 92 74-106 mg/dL Labs and/or images reviewed: Labs reviewed by me, Image(s) reviewed by me Problem List/Assessment/Plan Problem List/Assessment/Plan Assessment and Plan: Hypertensive urgency due to medication noncompliance - Carotid Doppler Study: Normal examination. No evidence of significant carotid stenosis. - Head CT: No acute intracranial process. Mild left maxillary sinus disease. - Atenolol 50 mg - Diltiazem 120 mg - Furosemide 40 mg - Monitor BP - Counseled the patient on the importance of maintaining adherence to his medications - Zofran 4 mg - Tylenol 650 mg possible autosomal dominant polycystic kidney disease - Abdomen/Pelvis CT: No acute abdominopelvic abnormalities. No adrenal mass. Polycystic kidney disease. - Kidneys: There are innumerable bilateral cysts replacing the bilateral renal parenchyma. No hydronephrosis. No renal calculi. Acute intractable shortness of breath - Levalbuterol 1.25 mg - Ipratropium 0.5 mg Ruled out Renal Artery Stenosis - Renal artery duplex: No findings to suggest renal artery stenosis GEREMIAS superimposed on CKD likely prerenal, hemodynamically mediated - Monitor renal function - Avoid nephrotoxic drugs - Nephrology consult Hypokalemia, 3.3 - Potassium 20 mEq p.o., once Vitamin D Deficiency - Vitamin-D 13336 units Q 70 p.o. Hyperlipidemia - Lipitor 20 mg - Lipid panel Hyperglycemia - Insulin Human Regular - Lantus 12 units - Jardiance 10 mg Marijuana use - counseled the patient on the importance of complete marijuana cessation for over 15 minutes. Obesity, BMI 32.9 kg/m2 - counseled the patient on healthy lifestyle modifications Diet: Cardiac DVT prophylaxis: Lovenox 60 mg GI prophylaxis: Not indicated Goals of care: Full code, discussed for >26 minutes on 06/03/25 Plan discussed with patient Plan discussed with Dr. Cantu Plan discussed with: Patient, Other (RN) My Orders My Orders Orders - LEXY TIM Procedure Category Date Status Time Complete Blood Count LAB 06/04/25 Verified 04:00 Comprehensive LAB 06/04/25 Verified Metabolic Panel 04:00 Date of Service: Jun 03, 2025 Billing Provider: KRISTIN CANTU MD Common Visit Codes: [id number] INP/OBS CARE(HIGH) LEXY TIM RESIDENT Jun 03, 2025 13:39 KRISTIN CANTU MD Jun 04, 2025 06:40
[2025-06-03] MEDS: SODIUM CHLORIDE 0.9% 1,000 ML IV SCH (16:48)
[2025-06-03 16:51] LABS: Potassium 3.4 mmol/L (3.5-5.1)
[2025-06-03 16:57] LABS: Magnesium 1.9 mg/dL (1.6-2.6)
[2025-06-03 17:10] VITALS: BP 137/89; PULSE 60; RESP 18; TEMP 98.6; O2SAT 99
--- NOTE | 2025-06-03 18:35 | DVHCONRES ---
Date Seen: Jun 03, 2025 Resident Creating Document: JAMIA STANLEY RESIDENT Referring Physician resident PATRICIA Reason for Consultation Polycystic kidney disease History of Present Illness Patient is a 35-year-old male with past medical history of hypertension, hyperli pidemia, and CKD, presented to [facility] ED with complaint of shortness of breaths, palpitation. The patient reports that yesterday around 1 PM, while at the grocery store, he experienced blurry vision, nausea, palpitations, and dizziness. He denies vomiting, chest pain, headache, loss of consciousness, or other associated symptoms. On evaluation in the ED, blood pressure was 180/115 mmHg. 12 lead EKG shows sinus rhythm. Initial labs show CBC within normal range, hypokalemia, creatinine 2.49, BUN 32, and Troponins were negative. Head CT shows no acute intracranial process. Chest x-ray shows no acute cardiopulmonary disease. Carotid Doppler Study shows no evidence of significant carotid stenosis. Head CT shows no acute intracranial process. Patient was seen and examined on the bedside. he is alert oriented x3. mentioned feeling better and no active complaint this time. Past Medical History Hypertension, hyperlipidemia, CKD Past Surgical History Jaw surgery, ganglion cyst removal Family History: Hypertension G8 MOTHER G8 FATHER Allergies: Coded Allergies: NO KNOWN ALLERGIES (Unverified , 06/02/25) Home Meds Active Scripts Hydrochlorothiazide (Hydrochlorothiazide) 25 Mg Tab, 25 MG PO DAILY for 30 Days, #30 TAB 0 Refills Prov:SOCO BASHIR RESIDENT 06/04/25 Nifedipine (Nifedipine Er) 60 Mg Tab, 60 MG PO DAILY@DINNER for 30 Days, #30 TAB 0 Refills Prov:SOCO BASHIR RESIDENT 06/04/25 Losartan Potassium (Losartan Potassium) 100 Mg Tab, 100 MG PO DAILY for 30 Days, #30 TAB 0 Refills Prov:SOCO BASHIR RESIDENT 06/04/25 Reported Medications Carvedilol (Carvedilol) 12.5 Mg Tab, 1 TAB PO BID, #180 TAB 1 Refill 06/03/25 Losartan Potassium & Hydrochlo (Hyzaar) 1 Tab Tab, 1 TAB PO DAILY, #30 TAB 5 Refills 06/03/25 Current Medications Current Medications Medications (Trade) Dose Ordered Sig/Vale Route PRN Reason Start Time Stop Time Status Last Admin Enoxaparin Sodium (Lovenox) 40 mg DAILY SC 06/03/25 10:00 06/03/25 08:27 Acetaminophen (Tylenol Tablet) 325 mg Q4HP PRN PO PAIN SCALE 1-3 OR TEMP>100.4 06/02/25 21:30 Carvedilol (Coreg Tablet) 12.5 mg Q12HR PO 06/02/25 22:00 06/03/25 08:25 Losartan Potassium (Cozaar Tablet) 100 mg DAILY PO 06/03/25 10:00 06/03/25 08:26 Hydrochlorothiazide (hydroCHLOROthiazide TABLET) 25 mg DAILY PO 06/03/25 10:00 06/03/25 08:21 Potassium Chloride (Klor-Con Tablet) 20 meq BID PO 06/03/25 10:06/03/25 02:01 DC Ergocalciferol (Vitamin D 50,000 Unit) 50,000 unit Q7D PO 06/03/25 10:00 06/03/25 08:20 Sodium Chloride 1,000 ml @ 75 mls/hr [id number] IV 06/03/25 15:45 06/03/25 16:48 Review of Systems Constitutional: No: Fever, Chills, Sweats, Weakness, Malaise, Other Eyes: No: Pain, Vision change, Conjunctivae inflammation, Eyelid inflammation, Other, Redness ENT: No: Ear pain, Ear discharge, Nose pain, Nose discharge, Nose congestion, Mouth pain, Mouth swelling, Throat pain, Throat swelling, Other Respiratory: Shortness of breath, improving No: Cough, Dry,Wheezing, Hemoptysis, Pleuritic Pain, Sputum, Wheezing, Other Cardiovascular: No: Chest Pain, Palpitations, Orthopnea, Paroxysmal Noc. Dyspnea, Edema, Lt Headedness, Other Gastrointestinal: No: Nausea, Vomiting, Abdominal Pain, Diarrhea, Constipation, Melena, Hematochezia, Other Musculoskeletal: No: other, neck pain, shoulder pain, arm pain, back pain, hand pain, leg pain, foot pain Neurological:; No: Weakness, Numbness, Incoordination, Change in speech, Con fusion, Seizures Vital Signs Vital Signs Date Time Temp Pulse Resp B/P (MAP) Pulse Ox O2 Delivery O2 Flow Rate FiO2 06/03/25 17:10 98.6 60 18 137/89 (105) 99 98.6 06/03/25 01:07 Room Air* 0 21 Physical Exam Physical examination: General Appearance: Alert, Oriented X3, Cooperative, No acute distress HEENT: Atraumatic, PERRLA, EOMI, Mucous membrane moist/pink Respiratory: Clear to auscultation, Normal air movement Cardiovascular: Regular rate, Normal S1, Normal S2, No murmurs, no chest wall tenderness Abdominal: Normal bowel sounds, Soft, No tenderness, No hepatospenomegaly, No masses Extremities: No clubbing, No cyanosis, No edema, Normal pulses, No tenderne ss/swelling Skin: No rashes, No breakdown, No significant lesion Neuro: Normal gait, Normal speech, Strength at 5/5 X4 ext, Normal tone, Sensation intact, Cranial nerves 3-12 NL, Reflexes 2+ Psych/Mental Status: Mental status NL, Mood NL Labs/Diagnostic Data Labs Test 06/03/25 15:00 06/03/25 10:23 06/03/25 03:28 06/02/25 14:54 Range/Units Potassium Level 3.4 L 3.5-5.1 mmol/L Magnesium Level 1.9 1.6-2.6 mg/dL Cortisol PM Sample 18.47 H 3.44-16.76 ug/dL Urine Color Colorless Yellow Urine Clarity Clear Clear Urine pH 6.0 5.0-9.0 Urine Specific [place] 1.008 1.001-1.035 Urine Protein Negative Negative Urine Ketones Negative Negative Urine Blood 1+ H Negative /uL Urine Nitrite Negative Negative Urine Bilirubin Negative Negative Urine Urobilinogen Normal Negative mg/dL Urine Leukocyte Esterase Negative Negative /uL Urine RBC <1 0 - 3 /hpf Urine Microscopic WBC < 1 0-3 /HPF Urine Squamous Epithelial Cells None seen <5 /hpf Urine Bacteria None seen None Seen /hpf Urine Glucose Normal Normal mg/dL Urine Opiates Screen Neg NEGATIVE Urine Fentanyl Screen Neg NEGATIVE Urine Barbiturates Screen Neg NEGATIVE Urine Phencyclidine Screen Neg NEGATIVE Urine Amphetamines Screen Neg NEGATIVE Urine Benzodiazepines Screen Neg NEGATIVE Urine Cocaine Screen Neg NEGATIVE Urine Cannabinoids Screen Pos NEGATIVE White Blood Count 6.6 4.4-10.8 10^3/uL Red Blood Count 4.69 4.5-5.90 10^6/uL Hemoglobin 14.0 13.5-17.5 g/dL Hematocrit 40.1 L 41.0-53.0 % Mean Corpuscular Volume 85.6 80.0-100.0 fL Mean Corpuscular Hemoglobin 29.8 28.0-32.0 pg Mean Corpuscular Hemoglobin Concent 34.8 32.0-36.0 g/dL Red Cell Distribution Width 14.1 11.8-14.3 % Platelet Count 215 140-450 10^3/uL Mean Platelet Volume 7.2 6.9-10.8 fL Neutrophils (%) (Auto) 56.8 37.0-80.0 % Lymphocytes (%) (Auto) 30.1 10.0-50.0 % Monocytes (%) (Auto) 9.5 0.0-12.0 % Eosinophils (%) (Auto) 3.1 0.0-7.0 % Basophils (%) (Auto) 0.5 0.0-2.0 % Neutrophils # (Auto) 3.7 1.6-8.6 10 ^3/uL Lymphocytes # (Auto) 2.0 0.4-5.4 10 ^3/uL Monocytes # (Auto) 0.6 0-1.3 10 ^3/uL Eosinophils # (Auto) 0.2 0-0.8 10 ^3/uL Basophils # (Auto) 0 0-0.2 10 ^3/uL Nucleated Red Blood Cells 0.1 % Sodium Level 139 136-145 mmol/L Chloride Level 103 98-107 mmol/L Carbon Dioxide Level 23 20-31 mmol/L Anion Gap 13 5-15 Blood Urea Nitrogen 24 H 9-23 mg/dL Creatinine 2.33 H 0.700-1.30 mg/dL Glomerular Filtration Rate Calc 36 >90 mL/min BUN/Creatinine Ratio 10.3 10.0-20.0 Serum Glucose 92 74-106 mg/dL Calcium Level 9.0 8.7-10.4 mg/dL Triglycerides Level 194 H < 150 mg/dL Cholesterol Level 219 H < 200 mg/dL LDL Cholesterol 174 H < 100 mg/dL HDL Cholesterol 32 L 40-59 mg/dL Phosphorus Level 2.3 L 2.4-5.1 mg/dL Total Bilirubin 0.8 0.2-1.0 mg/dL Direct Bilirubin 0.2 <0.3 mg/dL Aspartate Amino Transferase (AST) 19 13-40 U/L Alanine Aminotransferase (ALT) 22 7-40 U/L Alkaline Phosphatase 80 46-116 U/L Troponin I High Sensitivity 3 L </=54 ng/L Total Protein 8.1 5.7-8.2 g/dL Albumin 4.5 3.2-4.8 g/dL Test 06/02/25 14:12 Range/Units Hemoglobin A1c 5.4 <5.7 % A1C B-Type Natriuretic Peptide 1.70 0-100 pg/mL Vitamin B12 Level 509 211-911 pg/mL Vitamin D 25-Hydroxy 25.0 L 30.0-100 ng/mL Thyroid Stimulating Hormone (TSH) 0.72 0.55-4.78 uIU/mL Assessment Assessment and plan: # GEREMIAS superimposed on CKD likely prerenal, hemodynamically mediated # autosomal dominant polycystic kidney disease # Hypertensive emergency # Hypokalemia # Hyperlipidemia Plan: - CT abdomen pelvis demonstrated bilateral polycystic kidney disease - Ordered kidney ultrasound, urine sodium, urine creatinine, protein creatinine ratio to calculate FENA - IV normal saline at 75 mL/hours - Replaced potassium - Continue carvedilol 12.5 mg b.i.d., losartan potassium 100 mg daily, hydrochlorothiazide 25 mg daily for optimal control of blood pressure - other management as per primary - strict I&O - avoid nephrotoxic medication - monitor BMP Thank you so much for the opportunity to consult on your patient. Nephro team will follow the patient. In case of any questions or concerns please feel free to reach out. Plan discussed with Dr. Burnham . The patient and caregiver team agreed to the plan. Addendum Patient seen and examined, plan discussed with resident. Agree with above, we will follow closely Plan discussed with: Patient, Other (RN) JAMIA STANLEY RESIDENT Jun 03, 2025 18:35 PHONG BURNHAM MD Jun 04, 2025 16:33
[2025-06-03] MEDS: POTASSIUM EFFERVESENT TAB 25 MEQ PO ONE (18:50)
[2025-06-03 20:49] LABS: Protein, Urine 19.4 mg/dL (1-14)
[2025-06-04] VITALS (7 sets, daily range): BP systolic 146–172; BP diastolic 96–118; PULSE 55–76; RESP 16–20; TEMP 36.8; O2SAT 95–99
[2025-06-04] MEDS: POTASSIUM EFFERVESENT TAB 25 MEQ PO ONE (06:52)
[2025-06-04 08:13] LABS: Hematocrit 45.3 % (41.0-53.0); Hemoglobin 15.7 g/dL (13.5-17.5); Mean Corpuscular Hemoglobin 29.9 pg (28.0-32.0); Mean Corpuscular Volume 86.3 fL (80.0-100.0); Nucleated Red Blood Cells % 0.0 %
[2025-06-04 08:31] LABS: Alanine Aminotransferase 21 U/L (7-40); Albumin 4.7 g/dL (3.2-4.8); Alkaline Phosphatase 72 U/L (46-116); Anion Gap 11 (5-15); BUN/Creatinine Ratio 10.9 (10.0-20.0); Calcium 9.5 mg/dL (8.7-10.4); Carbon Dioxide 27 mmol/L (20-31); Chloride 101 mmol/L (98-107); Glucose 94 mg/dL (74-106); Sodium 139 mmol/L (136-145)
[2025-06-04 08:32] LABS: Bilirubin, Total 1.5 mg/dL (0.2-1.0); Blood Urea Nitrogen 25 mg/dL (9-23); Potassium 3.4 mmol/L (3.5-5.1); Total Protein 8.3 g/dL (5.7-8.2)
--- NOTE | 2025-06-04 09:04 | ECG ---
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
--- NOTE | 2025-06-04 10:23 | DVHSR ---
APPROVED REPORT EXAM: Two-dimensional and M-mode echocardiogram with Doppler and color Doppler. Blood Pressure: 140/90 mmHg INDICATION Eval cardiac function RISK FACTORS Height: 66, Weight: 203 DIMENSIONS LVDd4.5 (3.8-5.7cm)LA (2D)4.0 (1.9-4.0cm)Aortic Root3.2 (2.0-3.7cm) LVDs2.8 (2.5-4.0cm)LA (MM) (1.9-4.0cm)Aortic Cusp Exc2.0 (1.5-2.0cm) EF (%) 68.0 (55-70%)Rt. Atrium5.5 (1.9-4.0cm)Asc. Aorta cm IVSd1.0 (0.7-1.1cm)RV (D) (1.8-2.4cm) PWd1.2 (0.7-1.1cm) Mitral Valve MitralMitral Stenosis E wave0.55m/sMV Mean GR.mmHg A wave0.54m/sMV Peak GR.mmHg E/A ratio1.02D MVAcm2 DECEL [id number] 1/2 [id number] IVRTmsDop MVA3.65cm2 Aortic Valve Aortic ValveAortic Stenosis V11.08m/Padma Mean GR.4mmHg V21.24m/[place]ma Peak GR.6mmHg LVOT Diameter2.0 (1.8-2.4cm)Doppler AVA2.73cm2 Pulmonic Valve V21.14m/s Conclusion LV EF IS 65% MILD MVP NORMAL VALVES NORMAL RV FUNCTION NO EFFUSION
[2025-06-04] MEDS: POTASSIUM PHOSPHATE 44 MEQ in D5W 5% 250 ML IV ONE (12:21)
--- NOTE | 2025-06-04 13:55 | DVHDSRES ---
Discharge Summary Date of Admission Resident Creating Document: JAMIA STANLEY RESIDENT Jun 02, 2025 at 21:23 Date of Discharge: Jun 04, 2025 Admitting Diagnosis shortness of breath and palpitations Labs/Diagnostic Data: Laboratory Results Test 06/04/25 07:00 06/03/25 15:00 06/03/25 10:23 06/03/25 03:28 White Blood Count 8.6 10^3/uL (4.4-10.8) Red Blood Count 5.25 10^6/uL (4.5-5.90) Hemoglobin 15.7 g/dL (13.5-17.5) Hematocrit 45.3 % (41.0-53.0) Mean Corpuscular Volume 86.3 fL (80.0-100.0) Mean Corpuscular Hemoglobin 29.9 pg (28.0-32.0) Mean Corpuscular Hemoglobin Concent 34.6 g/dL (32.0-36.0) Red Cell Distribution Width 13.8 % (11.8-14.3) Platelet Count 271 10^3/uL (140-450) Mean Platelet Volume 7.3 fL (6.9-10.8) Neutrophils (%) (Auto) 63.9 % (37.0-80.0) Lymphocytes (%) (Auto) 24.0 % (10.0-50.0) Monocytes (%) (Auto) 8.0 % (0.0-12.0) Eosinophils (%) (Auto) 3.8 % (0.0-7.0) Basophils (%) (Auto) 0.3 % (0.0-2.0) Neutrophils # (Auto) 5.5 10 ^3/uL (1.6-8.6) Lymphocytes # (Auto) 2.1 10 ^3/uL (0.4-5.4) Monocytes # (Auto) 0.7 10 ^3/uL (0-1.3) Eosinophils # (Auto) 0.3 10 ^3/uL (0-0.8) Basophils # (Auto) 0 10 ^3/uL (0-0.2) Nucleated Red Blood Cells 0.0 % Sodium Level 139 mmol/L (136-145) Potassium Level 3.4 mmol/L (3.5-5.1) Chloride Level 101 mmol/L (98-107) Carbon Dioxide Level 27 mmol/L (20-31) Anion Gap 11 (5-15) Blood Urea Nitrogen 25 mg/dL (9-23) Creatinine 2.29 mg/dL (0.700-1.30) Glomerular Filtration Rate Calc 37 mL/min (>90) BUN/Creatinine Ratio 10.9 (10.0-20.0) Serum Glucose 94 mg/dL (74-106) Calcium Level 9.5 mg/dL (8.7-10.4) Total Bilirubin 1.5 mg/dL (0.2-1.0) Aspartate Amino Transferase (AST) 16 U/L (13-40) Alanine Aminotransferase (ALT) 21 U/L (7-40) Alkaline Phosphatase 72 U/L (46-116) Total Protein 8.3 g/dL (5.7-8.2) Albumin 4.7 g/dL (3.2-4.8) Cortisol AM Sample 15.18 ug/dL (5.27-22.45) Magnesium Level 1.9 mg/dL (1.6-2.6) Cortisol PM Sample 18.47 ug/dL (3.44-16.76) Urine Color Colorless (Yellow) Urine Clarity Clear (Clear) Urine pH 6.0 (5.0-9.0) Urine Specific [place] 1.008 (1.001-1.035) Urine Protein Negative (Negative) Urine Ketones Negative (Negative) Urine Blood 1+ /uL (Negative) Urine Nitrite Negative (Negative) Urine Bilirubin Negative (Negative) Urine Urobilinogen Normal mg/dL (Negative) Urine Leukocyte Esterase Negative /uL (Negative) Urine RBC <1 /hpf (0 - 3) Urine Microscopic WBC < 1 /HPF (0-3) Urine Squamous Epithelial Cells None seen /hpf (<5) Urine Bacteria None seen /hpf (None Seen) Urine Creatinine 54.80 mg/dL (30.0-125.0) Urine Protein/Creatinine Ratio 0.35 Urine Sodium 58 mmol/L (40-220) Urine Glucose Normal mg/dL (Normal) Urine Total Protein 19.4 mg/dL (1-14) Urine Opiates Screen Neg (NEGATIVE) Urine Fentanyl Screen Neg (NEGATIVE) Urine Barbiturates Screen Neg (NEGATIVE) Urine Phencyclidine Screen Neg (NEGATIVE) Urine Amphetamines Screen Neg (NEGATIVE) Urine Benzodiazepines Screen Neg (NEGATIVE) Urine Cocaine Screen Neg (NEGATIVE) Urine Cannabinoids Screen Pos (NEGATIVE) Triglycerides Level 194 mg/dL (< 150) Cholesterol Level 219 mg/dL (< 200) LDL Cholesterol 174 mg/dL (< 100) HDL Cholesterol 32 mg/dL (40-59) Test 06/02/25 14:54 06/02/25 14:12 Phosphorus Level 2.3 mg/dL (2.4-5.1) Direct Bilirubin 0.2 mg/dL (<0.3) Troponin I High Sensitivity 3 ng/L (</=54) Hemoglobin A1c 5.4 % A1C (<5.7) B-Type Natriuretic Peptide 1.70 pg/mL (0-100) Vitamin B12 Level 509 pg/mL (211-911) Vitamin D 25-Hydroxy 25.0 ng/mL (30.0-100) Thyroid Stimulating Hormone (TSH) 0.72 uIU/mL (0.55-4.78) Other Laboratory Tests 06/04/25 07:00 Brief Hx & Hospital Course: The patient is a 35-year-old male with a history of hypertension, hyperlipidemia, and chronic kidney disease who presented to the emergency department with complaints of shortness of breath and palpitations. He reported experiencing blurry vision, nausea, dizziness, and palpitations while at a grocery store the day prior. He denied chest pain, vomiting, headache, or loss of consciousness. He admitted to noncompliance with his antihypertensive medications for the past three days. On arrival, his blood pressure was 180/115 mmHg. Laboratory evaluation revealed hypokalemia, elevated creatinine, and BUN, with negative troponins. EKG showed sinus rhythm with right axis deviation and borderline repolarization abnormality. Head CT and carotid Doppler studies were unremarkable. Chest X-ray showed no acute cardiopulmonary disease. Renal artery duplex ruled out renal artery stenosis. CT abdomen/pelvis revealed innumerable bilateral renal cysts consistent with autosomal dominant polycystic kidney disease. Echocardiogram demonstrated a left ventricular ejection fraction of 65%, mild mitral valve prolapse, normal valves, and normal right ventricular function. The patient was treated for hypertensive urgency with atenolol, diltiazem, and furosemide. He received potassium supplementation, Zofran, and Tylenol for symptomatic relief. Levalbuterol and ipratropium were administered for acute shortness of breath. Nephrology was consulted for acute kidney injury superimposed on CKD, and renal function was closely monitored. He was started on vitamin D supplementation for deficiency, Lipitor for hyperlipidemia, and insulin and Jardiance for hyperglycemia. The patient was counseled extensively on medication adherence, marijuana cessation, and healthy lifestyle modifications. He was placed on a cardiac diet and remained clinically stable throughout his hospital course. On evaluation today, he states he is well, pain is manageable. His vitals have remained stable for discharge home, follow up visit in discharge clinic. All medications and recommendations were thoroughly explained and the patient states he understands and agrees. Detailed discussion held with patient at bedside were all questions were answered and concerns were addressed. Examination General: The patient alert and oriented in person place and time. Patient following commands HEENT: Normocephalic, atraumatic, normal reactive pupils, EOM intact, pink conjunctiva, pink moist mucous membrane Respiratory/pulmonary: Bilateral chest expansion, no pain on palpation of chest wall, clear lungs bilaterally, vesicular murmurs present in almost all lung trujillo, no associated crackles or wheezes. Cardiovascular: Normal RRR, normal S1 and S2, no murmurs Abdomen: Obese, Abdomen nondistended, normal bowel sounds, soft, there is no pain to palpation in any of the abdominal quadrants, no palpable masses. Extremities: No deformities, there is no peripheral edema present at the lower extremities, normal pulses Skin: No rashes or pruritus, there is no sacral edema present at this time. Neurological: Intact cranial nerves with no focal neurologic deficits Operations or Procedures PATIENT: SAAD RAMIREZ ACCT: [id number] UNIT: [id number] : 1990 LOC: OVERFLOW ROOM / BED: [address] [place] [address] AGE / SEX: 35 / M ADM STATUS: ADM IN SERVICE 1036 ORDERING PHYSICIAN: KARRIE GOMEZ RESIDENT PROCEDURE(s): ABPL - CT AB PEL WO CON-NO ORAL OR IV REASON: abdominal pain, r/o adrenal mass ORDER NUMBER(s): [id number], ACCESSION NUMBER(s): [id number] Exam: CT CT AB PEL WO CON-NO ORAL OR IV History: Abdominal pain, r/o adrenal mass. Comparison Study: Renal artery ultrasound performed on 06/02/2025. Technique: Multidetector spiral CT of the abdomen and pelvis was performed from lung bases to pubic symphysis. Imaging was performed without intravenous contrast. Coronal and sagittal multiplanar reformats were obtained from the axial data set by the technologist. Radiation Dose : 1. Abdomen/Pelvis: CTDIvol 17.65 mGy, DLP 1186.2 mGy*cm. Findings: Evaluation of vasculature and solid organs is limited due to lack of intravenous contrast use. Lung Bases: Lung bases are clear. Visualized portions of the heart and pericardium are unremarkable. Liver: The liver is normal in size. No focal lesions. Gallbladder and Biliary Tree: The gallbladder is unremarkable. No intrahepatic or extrahepatic biliary ductal dilatation. Spleen: Unremarkable Pancreas: The pancreas is grossly unremarkable. Adrenal Glands: Unremarkable Kidneys: There are innumerable bilateral cysts replacing the bilateral renal parenchyma. No hydronephrosis. No renal calculi. GI tract: The stomach is grossly normal in appearance. No evidence of small bowel wall thickening or abnormal dilatation to suggest bowel obstruction. The colon is unremarkable. The appendix is visualized and is normal. Peritoneum/mesentery/retroperitoneum. No evidence of free intraperitoneal air. No ascites. No evidence of suspicious lymphadenopathy. Abdominal Wall: Unremarkable. Vasculature: The visualized abdominal aorta is normal in size and caliber. Evaluation of abdominal and pelvic vessels is limited due to lack of intravenous contrast. Urinary Bladder: Grossly unremarkable for degree of distention. Pelvic Organs: Unremarkable Musculoskeletal: No aggressive focal bony lesions, acute fractures or dislocation. Soft tissues: Fat containing umbilical hernia. Subcutaneous emphysema in the left ventral abdominal wall to be correlated with injection history. IMPRESSION: 1. No acute abdominopelvic abnormalities. No adrenal mass. 2. Polycystic kidney disease. - PATIENT: SAAD RAMIREZ ACCT: [id number] UNIT: [id number] : 1990 LOC: OVERFLOW ROOM / BED: 1028-ERT / A AGE / SEX: 35 / M ADM STATUS: ADM IN SERVICE 0235 ORDERING PHYSICIAN: ALPESH BUITRAGO RESIDENT PROCEDURE(s): CARCL - CAROTID DUPLX W COLOR DOP REASON: R/o carotid stenosis ORDER NUMBER(s): [id number], ACCESSION NUMBER(s): [id number] CLINICAL HISTORY: Rule out carotid stenosis. TECHNIQUE: Duplex carotid Doppler ultrasound was performed. Grayscale, color- flow, and spectral waveform analysis was performed. COMPARISON: None FINDINGS: There is no significant plaque seen on zhao scale imaging in the carotid bifurcations and proximal ICAs bilaterally. There is no significant elevation of the peak systolic velocity. There is no significant spectral broadening. Color doppler examination demonstrates no evidence for significant turbulent flow. Findings correspond to the less than 50% stenosis category. Antegrade flow is noted in both vertebral arteries. EXAMINATION DATA: RIGHT PSV (cm/s) EDV (cm/s) ICA 85 32 CCA 95 ECA 84 ICA/CCA Ratio: 0.9 Vertebral Flow: antegrade LEFT PSV (cm/s) EDV (cm/s) ICA 69 29 CCA 64 ECA 93 ICA/CCA Ratio: 1.1 Vertebral Flow: antegrade IMPRESSION: Normal examination. No evidence of significant carotid stenosis. - PATIENT: SAAD RAMIREZ ACCT: [id number] UNIT: [id number] : 1990 LOC: OVERFLOW ROOM / BED: [facility]-ERT / A AGE / SEX: 35 / M ADM STATUS: ADM IN SERVICE 46 ORDERING PHYSICIAN: ALPESH BUITRAGO PROCEDURE(s): RAC - RENAL ARTERY COMP REASON: ORDER NUMBER(s): [id number], ACCESSION NUMBER(s): [id number] INDICATION: Hypotension TECHNIQUE: Multiple real-time sonographic images of the kidneys and bladder were obtained. Duplex Doppler evaluation including color Doppler and spectral/pulsed waveform analysis of the bilateral renal arteries was performed. COMPARISON: None FINDINGS: The right kidney measures 12.0 cm in length. The right renal echogenicity, contour and cortical thickness are within normal limits. No hydronephrosis or large masses/calculi are seen. Polycystic in appearance. The left kidney measures 12.0 cm in length. The left renal echogenicity, contour, and cortical thickness are within normal limits. No hydronephrosis or large masses/calculi are seen. Polycystic in appearance. Aorta peak systolic velocity, 122 cm/s Right renal artery peak systolic velocity, 64 cm/s (< 180 cm/s = normal). Left renal artery peak systolic velocity 121 cm/s (< 180 cm/s = normal). Right RAR : 0.8 (< 3.5, normal) Left RAR 1.0 (< 3.5, normal) Right RI: 0.72 (< 0.75, normal) Left RI: 0.64 (< 0.75, normal) IMPRESSION: No findings to suggest renal artery stenosis. *[employer]iques in Noninvasive Vascular Diagnosis 2001 PATIENT: SAAD RAMIREZ ACCT: [id number] UNIT: [id number] : 1990 LOC: OVERFLOW ROOM / BED: [facility]-ERT / A AGE / SEX: 35 / M ADM STATUS: ADM IN SERVICE 54 ORDERING PHYSICIAN: NATHAN BAUER PROCEDURE(s): CXR1 - CHEST XRAY 1 VIEW REASON: Chest pain ORDER NUMBER(s): [id number], ACCESSION NUMBER(s): [id number] CHEST RADIOGRAPH Indication: Chest pain Technique: Single frontal view of the chest was obtained Comparison: None FINDINGS: Lines and Tubes: None Lungs: No focal consolidation. Pleura: No effusion. No pneumothorax. Cardiomediastinal contours: Unremarkable Bones: No acute osseous abnormality. IMPRESSION: 1. No acute cardiopulmonary disease. PATIENT: SAAD RAMIREZ ACCT: [id number] UNIT: [id number] : 1990 LOC: ER ROOM / BED: / AGE / SEX: 35 / M ADM STATUS: REG ER SERVICE 04 ORDERING PHYSICIAN: ZAIN VALLADARES MD PROCEDURE(s): HWOCT - HEAD WITHOUT CONTRAST REASON: GENERALIZED NUMBNESS AND WEAKNESS TO THE LEFT EXTREMITIES ORDER NUMBER(s): [id number], ACCESSION NUMBER(s): [id number] EXAM: CT HEAD WITHOUT CONTRAST HISTORY: GENERALIZED NUMBNESS AND WEAKNESS TO THE LEFT EXTREMITIES COMPARISON: None TECHNIQUE: Noncontrast axial CT images of the head were performed. Sagittal and coronal reformatted images were obtained. This CT exam was performed using 1 or more of the following dose reduction techniques: Automated exposure control, adjustment of the mA and/or kv according to patient size, or the use of iterative reconstruction techniques. Radiation Dose: CTDI volume is 58.74 mGy. Dose-length product is 1273.2 mGy*cm FINDINGS: No intracranial hemorrhage, mass, midline shift, hydrocephalus, or evidence of acute large vessel infarct. There is a mucous retention cyst in the left maxillary sinus. The bilateral mastoid air cells and middle ear spaces are clear. No cranial fracture or scalp edema. IMPRESSION: 1. No acute intracranial process. 2. Mild left maxillary sinus disease. - PATIENT: SAAD RAMIREZ ACCT: [id number] UNIT: [id number] : 1990 LOC: [facility] ROOM / BED: [address] [place] [address] AGE / SEX: 35 / M ADM STATUS: ADM IN SERVICE 22 ORDERING PHYSICIAN: NATHAN BAUER RESIDENT PROCEDURE(s): ECIDC - ECHO 2D MODE CARDIAC DOP REASON: Evaluate cardiac function ORDER NUMBER(s): [id number], ACCESSION NUMBER(s): [id number] APPROVED REPORT EXAM: Two-dimensional and M-mode echocardiogram with Doppler and color Doppler. Blood Pressure: 140/90 mmHg INDICATION Eval cardiac function RISK FACTORS Height: 66, Weight: 203 DIMENSIONS LVDd 4.5 (3.8-5.7cm) LA (2D) 4.0 (1.9-4.0cm) Aortic Root 3.2 (2.0- 3.7cm) LVDs 2.8 (2.5-4.0cm) LA (MM) (1.9-4.0cm) Aortic Cusp Exc 2.0 (1.5- 2.0cm) EF (%) 68.0 (55-70%) Rt. Atrium 5.5 (1.9-4.0cm) Asc. Aorta cm IVSd 1.0 (0.7-1.1cm) RV (D) (1.8-2.4cm) PWd 1.2 (0.7-1.1cm) Mitral Valve Mitral Mitral Stenosis E wave 0.55m/s MV Mean GR. mmHg A wave 0.54m/s MV Peak GR. mmHg E/A ratio 1.0 2D MVA cm2 DECEL Time 163ms PRESS 1/2 Time 60ms IVRT ms Dop MVA 3.65cm2 Aortic Valve Aortic Valve Aortic Stenosis V1 1.08m/s AO Mean GR. 4mmHg V2 1.24m/s AO Peak GR. 6mmHg LVOT Diameter 2.0 (1.8-2.4cm) Doppler PEDRITO 2.73cm2 Pulmonic Valve V2 1.14m/s Conclusion LV EF IS 65% MILD MVP NORMAL VALVES NORMAL RV FUNCTION NO EFFUSION SIGNED BY: MATTHIAS GRAJEDA MD SIGNED DATE/TIME: 06/04/25 1023 PATIENT: SAAD RAMIREZ ACCT: [id number] : 1990 LOC: [facility] ROOM / BED: [address] [place] [address] AGE / SEX: 35 / M ADM STATUS: ADM IN SERVICE UNIT: [id number] ORDERING PHYSICIAN: ZAIN VALLADARES MD PROCEDURE(s): EKG - ELECTROCARDIGRAM ORDER NUMBER(s): [id number], ACCESSION NUMBER(s): [id number] - [facility] Test Date: 2025-06-02 Test Time: 14:26:43 Pat Name: SAAD RAMIREZ Department: ED Room: [facility] 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 DICTATED BY:NATHAN KING Sr., MD DICTATED DATE/TIME:06/02/25 1426 ELECTRONICALLY SIGNED BY:NATHAN KING Sr., MD 06/04/25 0904 Condition at Discharge: Stable Final Diagnosis/Problems List Hypertensive urgency due to medication noncompliance possible autosomal dominant polycystic kidney disease Acute intractable shortness of breath Ruled out Renal Artery Stenosis GEREMIAS superimposed on CKD likely prerenal, hemodynamically mediated Hypokalemia, 3.3 Vitamin D Deficiency Hyperlipidemia Hyperglycemia Marijuana use Obesity, BMI 32.9 kg/m2 Discharge Disposition: Home Discharge Instruct/Medications Diet: Regular Activity: No Restrictions, As Tolerated Follow Up/Referral: Follow up with PCP within 1 week Medications: continue home medications Scheduled Hydrochlorothiazide (Hydrochlorothiazide), 25 MG PO DAILY Losartan Potassium (Losartan Potassium), 100 MG PO DAILY Nifedipine (Nifedipine Er), 60 MG PO DAILY@DINNER Discontinued Medications Carvedilol (Carvedilol), 1 TAB PO BID, (Reported) Losartan Potassium & Hydrochlo (Hyzaar), 1 TAB PO DAILY, (Reported) Discharge Statement: "Patient was advised to return to the ER or call 911 if any headaches, dizziness, shortness of breath, chest pain, abdominal pain, bleeding, fevers, or worsening of medical condition. Patient was counseled about treatment plan, medications, possible side effects, patientverbalized understanding. All questions were answered to the best of my ability. This discharge took greater then 30 minutes in planning, reviewing documentation, counseling the patient, and discussing with other team members." ASSESSMENT ASSESSMENT Assessment Hypertensive urgency due to medication noncompliance possible autosomal dominant polycystic kidney disease Acute intractable shortness of breath Ruled out Renal Artery Stenosis GEREMIAS superimposed on CKD likely prerenal, hemodynamically mediated Hypokalemia, 3.3 Vitamin D Deficiency Hyperlipidemia Hyperglycemia Marijuana use Obesity, BMI 32.9 kg/m2 Date of Service: Jun 04, 2025 Billing Provider: KRISTIN CANTU MD Common Visit Codes: 88125-IJI/OBS DISCH DAY >30min LEXY TIM RESIDENT Jun 04, 2025 13:55 KRISTIN CANTU MD Jun 04, 2025 23:14
[2025-06-04] MEDS ORDERED: LOSA-535 PO (14:01)
[2025-06-04] MEDS ORDERED: NIFE1TAB30 PO (14:01)
[2025-06-04] MEDS ORDERED: HYDR25TA4 PO (14:01)
--- NOTE | 2025-06-04 16:50 | DVHPN2 ---
Progress Note Date Seen: Jun 04, 2025 Resident Creating Document: JAMIA STANLEY RESIDENT Medical Necessity Reason Pt with a Central, PICC or Fol: No Subjective Review of Systems Patient was seen and examined on the bedside. He is alert oriented x3. Mentioned feeling better and no active complaint this time. Objective vital signs Vital Sign Date Time Temp Pulse Resp B/P (MAP) Pulse Ox O2 Delivery O2 Flow Rate FiO2 06/04/25 16:39 36.8 55 18 06/04/25 12:30 172/118 (136) 99 06/04/25 08:00 Room Air* 0 21 Total Intake and Output 06/03/25 06/03/25 06/04/25 15:00 23:00 07:00 Intake Total 600 ml 700 ml Balance 600 ml 700 ml medications Current Medications Medications Dose Ordered Sig/Vale Route Start Time Stop Time Status Last Admin Dose Admin Enoxaparin Sodium 40 mg DAILY SC 06/03/25 10:00 06/04/25 08:54 40 MG Acetaminophen 325 mg Q4HP PRN PO 06/02/25 21:30 Losartan Potassium 100 mg DAILY PO 06/03/25 10:00 06/04/25 08:54 100 MG Ergocalciferol 50,000 unit Q7D PO 06/03/25 10:00 06/03/25 08:20 50,000 UNIT Nifedipine 60 mg DAILY PO 06/04/25 10:00 06/04/25 12:20 60 MG Examination Physical examination: General Appearance: Alert, Oriented X3, Cooperative, No acute distress HEENT: Atraumatic, PERRLA, EOMI, Mucous membrane moist/pink Respiratory: Clear to auscultation, Normal air movement Cardiovascular: Regular rate, Normal S1, Normal S2, No murmurs, no chest wall tenderness Abdominal: Normal bowel sounds, Soft, No tenderness, No hepatospenomegaly, No masses Extremities: No clubbing, No cyanosis, No edema, Normal pulses, No tenderness/swelling Skin: No rashes, No breakdown, No significant lesion Neuro: Normal gait, Normal speech, Strength at 5/5 X4 ext, Normal tone, Sensation intact, Cranial nerves 3-12 NL, Reflexes 2+ Psych/Mental Status: Mental status NL, Mood NL laboratory and microbiology Laboratory Tests 06/04/25 07:00 Test 06/04/25 07:00 Range/Units Serum Glucose 94 74-106 mg/dL Labs and/or images reviewed: Labs reviewed by me, Image(s) reviewed by me Problem List/Assessment/Plan Problem List/Assessment/Plan Assessment and plan: # GEREMIAS superimposed on CKD likely prerenal, hemodynamically mediated # Autosomal dominant polycystic kidney disease # Hypertensive emergency # Hypokalemia # Hypophosphatemia # Hyperlipidemia Plan: - CT abdomen pelvis demonstrated bilateral polycystic kidney disease - Ordered kidney ultrasound, urine sodium, urine creatinine, protein creatinine ratio to calculate FENA - IV normal saline at 75 mL/hours - Replaced potassium and phosphorus - Continue carvedilol 12.5 mg b.i.d., losartan potassium 100 mg daily, hydrochlorothiazide 25 mg daily, nifedipine 60 mg ER daily for optimal control of blood pressure - other management as per primary - strict I&O - avoid nephrotoxic medication - monitor BMP - Recommended outpatient follow up with Nephrology for management of polycystic kidney disease. Plan discussed with Dr. Burnham Addendum Patient seen and examined, plan discussed with resident. Agree with above, we will follow closely tolvaptan as outpt Plan discussed with: Patient, Spouse, Other (RN) My Orders My Orders Orders - JAMIA STANLEY Procedure Category Date Status Time Potassium Phosphate PHA 06/04/25 In Process 09:30 JAMIA STANLEY Jun 04, 2025 16:50 PHONG BURNHAM MD Jun 04, 2025 18:52
== END 2025-06-04 18:12 | disposition home or self-care (01) | DRG 199 ==
LOC: ER 13:35 → OVERFLOW 21:23 → TELE-WESTW 06-03 22:15 → WEST WING 06-04 10:37
PROVIDERS: ADMIT Internal Medicine; ATTEND Internal Medicine
DX: I16.1 Hypertensive emergency (principal); E83.39 Other disorders of phosphorus metabolism; I25.9 Chronic ischemic heart disease, unspecified; E87.6 Hypokalemia; E66.9 Obesity, unspecified; E78.5 Hyperlipidemia, unspecified; N18.9 Chronic kidney disease, unspecified; I12.9 Hypertensive chronic kidney disease with stage 1 through stage 4 chronic kidney disease, or unspecified chronic kidney disease; R73.9 Hyperglycemia, unspecified; N17.9 Acute kidney failure, unspecified; Q61.2 Polycystic kidney, adult type; Z68.32 Body mass index [BMI] 32.0-32.9, adult; Z83.3 Family history of diabetes mellitus; Z91.148 Patient's other noncompliance with medication regimen for other reason; Z79.899 Other long term (current) drug therapy
CPT/HCPCS: 36415; 70450; 71045; 74176; 80048; 80053; 80061; 80076; 80307; 81001; 82088; 82306; 82533; 82570; 82607; 83036; 83735; 83880; 84100; 84132; 84156; 84244; 84300; 84443; 84484; 85025; 93005; 93306; 93886; 93975; G0378; J7060